=== PATIENT | male | born 2000 | race Hispanic/Latino ===

== ENCOUNTER 2024-02-04 22:50 | Emergency (ER) | payer SELFPAY ==
[~2024-02-04] VITALS: Ht 182.9 cm; Wt 95.3 kg
[2024-02-04 22:54] VITALS: BP 128/88; PULSE 74; RESP 20; TEMP 97.9; O2SAT 100
[2024-02-04] MEDS: ketOROlac 30MG VIAL (30MG/ML) IM ONE (23:05)
[2024-02-04] MEDS: dexaMETHasone SOD PHOSPHATE 4 MG/ML 1ML VIAL IM ONE (23:05)
[2024-02-04] MEDS: cefTRIAXone 1G VIAL IM ONE (23:05)
[2024-02-04] MEDS ORDERED: KETO10TA2 PO (23:07)
[2024-02-04] MEDS ORDERED: AMOX1TAB16 PO (23:07)
[2024-02-04] MEDS ORDERED: METH4TAB3 PO (23:07)
== END 2024-02-04 23:13 | disposition home or self-care (01) ==
LOC: EDH 22:50
DX: H66.92 Otitis media, unspecified, left ear (principal); Z90.89 Acquired absence of other organs
CPT/HCPCS: 99284; 96372 ×3; J1100; J0696; J1885